=== PATIENT | female | born 1975 | race Caucasian/White ===

== ENCOUNTER 2016-07-15 11:32 | Emergency (ER) | payer BC ==
[2016-07-15] MEDS ORDERED: Sodium Chloride 0.9% 2.5 ML Syringe FLUSH PRN (11:54)
[2016-07-15] MEDS ORDERED: Sodium Chloride 0.9% 1,000 ML IV ONE (11:54)
[2016-07-15] MEDS ORDERED: Sodium Chloride 0.9% 10 ML Syringe FLUSH PRN (11:54)
--- NOTE | 2016-07-15 12:06 | EDM.PDOC ---
ED HPI HEADACHE COMPLAINT - General Chief Complaint: Headache Stated Complaint: HEADACHE Time Seen by Provider: 07/15/16 11:55 Source of Information: Reports: Patient History Limitations: Reports: No limitations - History of Present Illness INITIAL COMMENTS - FREE TEXT/NARRATIVE: HISTORY AND PHYSICAL: History of present illness: [Patient comes to the emergency room complaining of headache and generalized malaise. She began to feel lightheaded and not feeling well yesterday afternoon while she was at work. She left work early and went home and rested. She woke up this morning with a worsened headache and tried to get in for a doctor's appointment. Was recommended to come to the emergency room for evaluation due to her history of atrial fibrillation and hypertension. She denies chest pain, shortness of breath and difficulty breathing, but admits that she doesn't feel right. No abdominal pain. Has felt mildly nauseated today, and had 1 episode of loose stools today. She has not had much appetite, and has not been eating or drinking normally. Has not taken any medications for her symptoms. She has a history of headaches for which she usually takes Imitrex. She's not taken this medication today. Today's headache feels similar to other headaches she's had in the past but is not nearly as severe today.] Review of systems: As per history of present illness and below otherwise all systems reviewed and negative. Past medical history: As per history of present illness and as reviewed below otherwise noncontributory. Surgical history: As per history of present illness and as reviewed below otherwise noncontributory. Social history: No reported history of drug or alcohol abuse. Family history: As per history of present illness and as reviewed below otherwise noncontributory. Physical exam: HEENT: Atraumatic, normocephalic. mucous membranes slightly dry., throat clear. PERRLA., neck supple, nontender, no lymphadenopathy. Lungs: Clear to auscultation laterally. No wheezing crackles or rales. chest nontender. Heart: S1S2, regular rate and rhythm. Abdomen: Obese. Normoactive bowel sounds. Soft, nondistended, nontender. Negative for masses or hepatosplenomegaly. Negative for costovertebral tenderness. Genitourinary: Deferred. Rectal: Deferred. Extremities: Atraumatic, negative for cords or calf pain. No cyanosis or edema to feet or lower legs. Neurovascular unremarkable. Neuro: Awake, alert, oriented. Motor and sensory unremarkable throughout. Exam nonfocal. Diagnostics: [EKG, chest x-ray, CBC, CMP, troponin] Therapeutics: [Normal saline 1 L bolus] Impression: [Headache] Plan: [Discussed with patient that her headache may be due to being mildly dehydrated from a viral illness. Recommend she push fluids, get plenty of rest. Work note given excusing for this afternoon and tomorrow. Tylenol and ibuprofen as needed. All questions are answered and concerns are addressed.] Definitive disposition and diagnosis as appropriate pending reevaluation and review of above. - Related Data Allergies/ADRs: Allergies Allergy/AdvReac Type Severity Reaction Status Date / Time penicillin Allergy Anaphylactic Verified 07/15/16 11:45 Shock Home Meds: Home Meds Cyclobenzaprine [Flexeril] 10 mg PO TID PRN 02/11/15 [History] Diclofenac Sodium [Voltaren] 75 mg PO ASDIRECTED PRN 02/11/15 [History] LORazepam 1 mg PO DAILY PRN 02/11/15 [History] Levothyroxine [Synthroid] 50 mcg PO DAILY 02/11/15 [History] Losartan [Cozaar] 50 mg PO DAILY 02/11/15 [History] SUMAtriptan 100 mg PO ASDIRECTED PRN 02/11/15 [History] Citalopram [Celexa] 20 mg PO DAILY 06/02/16 [History] Metoprolol Tartrate 25 mg PO BID 06/02/16 [History] Rivaroxaban [Xarelto] 20 mg PO DAILY 06/02/16 [History] hydrALAZINE [Apresoline] 75 mg PO BEDTIME 07/15/16 [History] Past Medical History Cardiovascular History: Reports: High cholesterol, 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: Musculoskeletal History: Reports: Back pain, chronic Other Musculoskeletal History: mild degenerative disc disease Neurological History: Reports: Headaches, chronic Psychiatric History: Reports: Anxiety, Depression Dermatologic History: Reports: Other (see below) Other Dermatologic History: rash - Infectious Disease History Infectious Disease History: Reports: Chicken pox - Past Surgical History Other HEENT Surgeries/Procedures: sinus surgery GI Surgical History: Reports: Cholecystectomy Female Surgical History: Reports: section Other Female Surgeries/Procedures: laporoscopy Social & Family History - Family History Cardiac: Reports: Hypertension Endocrine/Metabolic: Reports: Other (see below) Other Endocrine/Metabolic Family History: diabetes-unknown type Oncologic: Reports: Other (see below) Other Oncologic Family History: sarcoma - Tobacco Use Smoking Status *Q: Never Smoker Second Hand Smoke Exposure: No - Caffeine Use Caffeine Use: Reports: Coffee - Recreational Drug Use Recreational Drug Use: No ED ROS GENERAL - Review of Systems Review Of Systems: ROS reveals no pertinent complaints other than HPI. - Physical Exam Exam: See Below Course - Vital Signs Last Recorded V/S: Last Vital Signs Temp 98.6 F 07/15/16 11:42 Pulse 76 07/15/16 14:23 Resp 18 07/15/16 11:42 BP 147/83 H 07/15/16 14:23 Pulse Ox 97 07/15/16 14:23 - Orders/Labs/Meds Orders: Active Orders 24 hr Category Date Time Status EKG Documentation Completion [RC] STAT Care 07/15/16 11:54 Active Saline Lock Insert [OM.PC] Stat Oth 07/15/16 11:54 Ordered Labs: Laboratory Tests 07/15/16 07/15/16 07/15/16 Range/Units 12:03 12:03 12:03 WBC 8.15 (4.0-11.0) K/uL RBC 4.81 (4.30-5.90) M/uL Hgb 14.1 (12.0-16.0) g/dL Hct 42.2 (36.0-46.0) % MCV 87.7 (80.0-98.0) fL MCH 29.3 (27.0-32.0) pg MCHC 33.4 (31.0-37.0) g/dL RDW Std Deviation 44.1 (28.0-62.0) fl RDW Coeff of Ava 14 (11.0-15.0) % Plt Count 241 (150-400) K/uL MPV 10.10 (7.40-12.00) fL Add Manual Diff YES Neutrophils % (Manual) 64 (48.0-80.0) % Band Neutrophils % 3 % Lymphocytes % (Manual) 28 (16.0-40.0) % Monocytes % (Manual) 3 (0.0-15.0) % Eosinophils % (Manual) 2 (0.0-7.0) % Nucleated RBC % 0.0 /100WBC Absolute Seg Neuts 5.2 Band Neutrophils # 0.2 Lymphocytes # (Manual) 2.3 Monocytes # (Manual) 0.2 Eosinophils # (Manual) 0.2 Nucleated RBCs # 0 K/uL Sodium 140 (136-146) mmol/L Potassium 3.5 (3.5-5.1) mmol/L Chloride 107 (98-110) mmol/L Carbon Dioxide 23 (21-31) mmol/L BUN 13 (6.0-23.0) mg/dL Creatinine 0.7 (0.6-1.5) mg/dL Est Cr Clr Drug Dosing 82.80 mL/min Estimated GFR (MDRD) > 60.0 ml/min Glucose 93 (60-110) mg/dL Calcium 9.0 (8.8-10.8) mg/dL Total Bilirubin 1.2 (0.1-1.5) mg/dL AST 19 (5-40) IU/L ALT 22 (8-54) IU/L Alkaline Phosphatase 66 (40-150) Troponin I < 0.10 (0.0-0.29) NG/ML Total Protein 7.2 (6.0-8.0) g/dL Albumin 4.0 (3.5-5.0) g/dL Globulin 3.2 (2.0-3.5) g/dL Albumin/Globulin Ratio 1.3 (1.3-2.8) Urine Color Urine Appearance Urine pH (5.0-8.0) Ur Specific [place] (1.001-1.035) Urine Protein (NEGATIVE) mg/dL Urine Glucose (UA) (NEGATIVE) mg/dL Urine Ketones (NEGATIVE) mg/dL Urine Occult Blood (NEGATIVE) Urine Nitrite (NEGATIVE) Urine Bilirubin (NEGATIVE) Urine Urobilinogen (<2.0) EU/dL Ur Leukocyte Esterase (NEGATIVE) Urine RBC (0-2/HPF) Urine WBC (0-5/HPF) Ur Squamous Epith Cells Urine Bacteria (NEGATIVE) Hyaline Casts (0-2/LPF) Urine Mucus (NONE-MOD) 07/15/16 Range/Units 13:18 WBC (4.0-11.0) K/uL RBC (4.30-5.90) M/uL Hgb (12.0-16.0) g/dL Hct (36.0-46.0) % MCV (80.0-98.0) fL MCH (27.0-32.0) pg MCHC (31.0-37.0) g/dL RDW Std Deviation (28.0-62.0) fl RDW Coeff of Ava (11.0-15.0) % Plt Count (150-400) K/uL MPV (7.40-12.00) fL Add Manual Diff Neutrophils % (Manual) (48.0-80.0) % Band Neutrophils % % Lymphocytes % (Manual) (16.0-40.0) % Monocytes % (Manual) (0.0-15.0) % Eosinophils % (Manual) (0.0-7.0) % Nucleated RBC % /100WBC Absolute Seg Neuts Band Neutrophils # Lymphocytes # (Manual) Monocytes # (Manual) Eosinophils # (Manual) Nucleated RBCs # K/uL Sodium (136-146) mmol/L Potassium (3.5-5.1) mmol/L Chloride (98-110) mmol/L Carbon Dioxide (21-31) mmol/L BUN (6.0-23.0) mg/dL Creatinine (0.6-1.5) mg/dL Est Cr Clr Drug Dosing mL/min Estimated GFR (MDRD) ml/min Glucose (60-110) mg/dL Calcium (8.8-10.8) mg/dL Total Bilirubin (0.1-1.5) mg/dL AST (5-40) IU/L ALT (8-54) IU/L Alkaline Phosphatase (40-150) Troponin I (0.0-0.29) NG/ML Total Protein (6.0-8.0) g/dL Albumin (3.5-5.0) g/dL Globulin (2.0-3.5) g/dL Albumin/Globulin Ratio (1.3-2.8) Urine Color YELLOW Urine Appearance SLT CLOUDY Urine pH 6.0 (5.0-8.0) Ur Specific [place] 1.025 (1.001-1.035) Urine Protein NEGATIVE (NEGATIVE) mg/dL Urine Glucose (UA) NEGATIVE (NEGATIVE) mg/dL Urine Ketones NEGATIVE (NEGATIVE) mg/dL Urine Occult Blood NEGATIVE (NEGATIVE) Urine Nitrite NEGATIVE (NEGATIVE) Urine Bilirubin NEGATIVE (NEGATIVE) Urine Urobilinogen 0.2 (<2.0) EU/dL Ur Leukocyte Esterase NEGATIVE (NEGATIVE) Urine RBC 0-2 (0-2/HPF) Urine WBC 0-2 (0-5/HPF) Ur Squamous Epith Cells MANY Urine Bacteria 1+ H (NEGATIVE) Hyaline Casts 0-2 (0-2/LPF) Urine Mucus HEAVY (NONE-MOD) Meds: Medications Discontinued Medications Generic Name Dose Route Start Last Admin Trade Name Freq PRN Reason Stop Dose Admin Sodium Chloride 1,000 mls @ 999 mls/hr 07/15/16 11:54 07/15/16 12:08 Normal Saline IV 07/15/16 12:54 999 mls/hr STAT ONE Administration Ondansetron HCl 4 mg 07/15/16 12:46 07/15/16 13:23 Zofran IVPUSH 07/15/16 12:47 4 mg ONETIME ONE Administration Sodium Chloride 10 ml 07/15/16 11:54 07/15/16 12:09 Saline Flush FLUSH 10 ml ASDIRECTED PRN Administration Keep Vein Open Sodium Chloride 2.5 ml 07/15/16 11:54 07/15/16 12:09 Saline Flush FLUSH 2.5 ml ASDIRECTED PRN Administration Keep Vein Open Departure - Departure Time of Disposition: 14:15 Disposition: Home, Self-Care 01 Condition: good Clinical Impression: Headache Qualifiers: Headache type: other headache syndrome Qualified Code(s): G44.89 - Other headache syndrome Instructions: Cluster Headache Referrals: PCP,None [Primary Care Provider] - Forms: ED Department Discharge Additional Instructions: The following information is given to patients seen in the emergency department who are being discharged to home. This information is to outline your options for follow-up care. We provide all patients seen in our emergency department with a follow-up referral. The need for follow-up, as well as the timing and circumstances, are variable depending upon the specifics of your emergency department visit. If you don't have a primary care physician on staff, we will provide you with a referral. We always advise you to contact your personal physician following an emergency department visit to inform them of the circumstance of the visit and for follow-up with them and/or the need for any referrals to a consulting specialist. The emergency department will also refer you to a specialist when appropriate. This referral assures that you have the opportunity for follow-up care with a specialist. All of these measure are taken in an effort to provide you with optimal care, which includes your follow-up. Under all circumstances we always encourage you to contact your private physician who remains a resource for coordinating your care. When calling for follow-up care, please make the office aware that this follow-up is from your recent emergency room visit. If for any reason you are refused follow-up, please contact the [facility] emergency department at and asked to speak to the emergency department charge nurse. [facility] [address] [place] [address] Followup with your local primary care provider at the clavicles above the 48-72 hours. Push fluids, get plenty of rest. May return to work on July 17, 2016. Return to ER as needed as discussed. - My Orders Last 24 Hours: My Active Orders 07/15/16 11:54 EKG Documentation Completion [RC] STAT Saline Lock Insert [OM.PC] Stat - Assessment/Plan Last 24 Hours: My Active Orders 07/15/16 11:54 EKG Documentation Completion [RC] STAT Saline Lock Insert [OM.PC] Stat
[2016-07-15 12:36] LABS: CHLORIDE,CL 107 mmol/L (98-110); SODIUM,NA 140 mmol/L (136-146)
[2016-07-15] MEDS ORDERED: Ondansetron 4 MG/2 ML SDV IVPUSH ONE (12:46)
[2016-07-15 14:23] VITALS: BP 147/83
== END 2016-07-15 14:26 | disposition home or self-care (01) ==
LOC: MW.ED 11:32
DX: G44.89 Other headache syndrome (principal); I10 Essential (primary) hypertension; E78.00 Pure hypercholesterolemia, unspecified; F41.8 Other specified anxiety disorders; Z90.49 Acquired absence of other specified parts of digestive tract; Z98.890 Other specified postprocedural states; Z88.0 Allergy status to penicillin; Z79.899 Other long term (current) drug therapy
CPT/HCPCS: 36415; 80053; 81001; 84484; 85025; 93005; 96361; 96374; 99283; J2405; J7040; 99284

== ENCOUNTER 2016-10-26 05:55 | Emergency (ER) | payer BC ==
--- NOTE | 2016-10-26 07:12 | EDM.PDOC ---
ED HPI GENERAL MEDICAL PROBLEM - General Chief Complaint: General Stated Complaint: ILL,CHEST THROAT CONGESTION Time Seen by Provider: 10/26/16 06:10 Source of Information: Reports: Patient History Limitations: Reports: No Limitations - History of Present Illness INITIAL COMMENTS - FREE TEXT/NARRATIVE: HISTORY AND PHYSICAL: History of present illness: [[id number] female with no symmetric a past medical history now complaining of dry cough and sinus congestion. 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 No chest pain or shortness of breath. She feels like her sinus congestions making it difficult to breathe. No headache Or stiff neck otherwise asymptomatic Review of systems: As per history of present illness and below otherwise all systems reviewed and negative. Past medical history: As per history of present illness and as reviewed below otherwise noncontributory. Surgical history: As per history of present illness and as reviewed below otherwise noncontributory. Social history: No reported history of drug or alcohol abuse. Family history: As per history of present illness and as reviewed below otherwise noncontributory. Physical exam: Mild sinus congestion. Clear lungs regular rate and rhythm no tachypnea or tachycardia normal respiratory rate and pulse ox HEENT: Atraumatic, normocephalic, pupils reactive, negative for conjunctival pallor or scleral icterus, mucous membranes moist, throat clear, neck supple, nontender, trachea midline. Lungs: Clear to auscultation, breath sounds equal bilaterally, chest nontender. Heart: S1S2, regular, negative for clicks, rubs, or JVD. Abdomen: Soft, nondistended, nontender. Negative for masses or hepatosplenomegaly. Negative for costovertebral tenderness. Pelvis: Stable nontender. Genitourinary: Deferred. Rectal: Deferred. Extremities: Atraumatic, negative for cords or calf pain. Neurovascular unremarkable. Neuro: Awake, alert, oriented. Cranial nerves grossly unremarkable. Cerebellum unremarkable. Motor and sensory unremarkable throughout. Exam nonfocal. Diagnostics: [Chest x-ray interpreted by me -no acute disease] Therapeutics: [] Impression: [Sinus congestion Cough] Plan: [Patient with mild dry cough and sinus congestion signs and symptoms consistent with suspected viral syndrome versus less likely possibility of the mucosal irritation from cleaning agent fumes. Patient with normal respiratory rate and pulse ox no shortness of air.] Patient is aware to take [id number] meds as needed for congestion and follow-up with her primary care doctor in one to 2 days. Return immediately for new severe or worsening symptoms Definitive disposition and diagnosis as appropriate pending reevaluation and review of above. - Related Data Allergies Allergy/AdvReac Type Severity Reaction Status Date / Time penicillin Allergy Anaphylactic Verified 10/26/16 06:04 Shock Home Meds: Home Meds Cyclobenzaprine [Flexeril] 10 mg PO TID PRN 02/11/15 [History] Diclofenac Sodium [Voltaren] 75 mg PO ASDIRECTED PRN 02/11/15 [History] LORazepam 1 mg PO DAILY PRN 02/11/15 [History] Levothyroxine [Synthroid] 50 mcg PO DAILY 02/11/15 [History] Losartan [Cozaar] 50 mg PO DAILY 02/11/15 [History] SUMAtriptan 100 mg PO ASDIRECTED PRN 02/11/15 [History] Citalopram [Celexa] 20 mg PO DAILY 06/02/16 [History] Metoprolol Tartrate 25 mg PO BID 06/02/16 [History] Rivaroxaban [Xarelto] 20 mg PO DAILY 06/02/16 [History] hydrALAZINE [Apresoline] 75 mg PO BEDTIME 07/15/16 [History] Past Medical History Cardiovascular History: Reports: Afib, Hypertension 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: Musculoskeletal History: Reports: Back Pain, Chronic Other Musculoskeletal History: mild degenerative disc disease Neurological History: Reports: Headaches, Chronic Psychiatric History: Reports: Anxiety, Depression Dermatologic History: Reports: Other (See Below) Other Dermatologic History: rash - Infectious Disease History Infectious Disease History: Reports: Chicken Pox - Past Surgical History Other HEENT Surgeries/Procedures: sinus surgery GI Surgical History: Reports: Cholecystectomy Female Surgical History: Reports: Section Social & Family History - Family History Cardiac: Reports: Hypertension Endocrine/Metabolic: Reports: Other (See Below) Other Endocrine/Metabolic Family History: diabetes-unknown type Oncologic: Reports: Other (See Below) Other Oncologic Family History: sarcoma - Tobacco Use Smoking Status *Q: Never Smoker Second Hand Smoke Exposure: No - Caffeine Use Caffeine Use: Reports: Coffee - Recreational Drug Use Recreational Drug Use: No ED ROS GENERAL - Review of Systems Review Of Systems: See Below (history of present illness) ED EXAM, GENERAL - Physical Exam Exam: See Below (History of present illness) Course - Vital Signs Last Recorded V/S: Last Vital Signs Temp 36.5 C 10/26/16 06:04 Pulse 92 10/26/16 06:04 Resp 20 10/26/16 06:04 BP 181/114 H 10/26/16 06:04 Pulse Ox 96 10/26/16 06:04 - Orders/Labs/Meds Orders: Active Orders 24 hr Category Date Time Status Chest 1V Frontal [CR] Stat Exams 10/26/16 06:43 Taken Departure - Departure Time of Disposition: 07:13 Disposition: Home, Self-Care 01 Condition: Good Clinical Impression: Sinus congestion, Cough - Discharge Information Referrals: Kiki Padilla MD [Primary Care Provider] - Forms: ED Department Discharge Additional Instructions: It appears that you have a likely viral syndrome causing of sinus congestion and dry cough. Use [id number] meds as needed for decongestant effect. Ativan abundance of caution is recommended to avoid exposure to concentrate cleaning product fumes so he use any be sure to be in well ventilated area. Follow-up with your DrCallie in one to 2 days and return immediately for new severe or worsening symptoms - My Orders Last 24 Hours: My Active Orders 10/26/16 06:43 Chest 1V Frontal [CR] Stat - Assessment/Plan Last 24 Hours: My Active Orders 10/26/16 06:43 Chest 1V Frontal [CR] Stat
[2016-10-26 07:25] VITALS: BP 142/94
--- NOTE | 2016-10-28 11:39 | CR ---
EXAM DATE: 10/26/16 PATIENT'S AGE: 41 Patient: ROWENA DARBY Facility: [place], [place] Site . Site : [id number] Study: XRay Chest [id number]/17/2017 6:56:40 AM Ordering Physician: Vaibhav Sung Final Report: INDICATION: CHEST PAIN, SOB. PT STATES WOKE UP THIS MORNING AND FELT LIKE SHE COULDNT BREATH TECHNIQUE: Chest radiograph 1 view COMPARISON: 02/11/15 FINDINGS: Cardiovascular and mediastinum: The cardiac silhouette is normal in appearance and size. Mediastinum is within normal limits. Lungs and pleural space: Both lungs are unremarkable in appearance. No sign of pleural effusion. No pneumothorax is seen. Bones and soft tissues: No significant findings. IMPRESSION: 1. No acute cardiopulmonary disease seen. Dictated by: Mack Gibbs MD @ 10/26/2016 07:01:58 (Electronic Signature) Report Signed by Proxy. DARLENE
== END 2016-10-26 07:22 | disposition home or self-care (01) ==
LOC: MW.ED 05:55
DX: R09.81 Nasal congestion (principal); R05 Cough; I10 Essential (primary) hypertension; I48.91 Unspecified atrial fibrillation; F41.9 Anxiety disorder, unspecified; F32.9 Major depressive disorder, single episode, unspecified; Z88.0 Allergy status to penicillin; Z79.899 Other long term (current) drug therapy; Z90.49 Acquired absence of other specified parts of digestive tract
CPT/HCPCS: 71010; 71010-26; 99282; 99284

== ENCOUNTER 2016-11-27 15:19 | Emergency (ER) | payer BC ==
[2016-11-27] MEDS ORDERED: Sodium Chloride 0.9% 2.5 ML Syringe FLUSH PRN (15:53)
[2016-11-27] MEDS ORDERED: Ondansetron 4 MG/2 ML SDV IVPUSH ONE (15:53)
[2016-11-27] MEDS ORDERED: Sodium Chloride 0.9% 1,000 ML IV ONE (15:53)
[2016-11-27] MEDS ORDERED: Sodium Chloride 0.9% 10 ML Syringe FLUSH PRN (15:53)
--- NOTE | 2016-11-27 15:57 | EDM.PDOC ---
ED HPI GENERAL MEDICAL PROBLEM - General Chief Complaint: Gastrointestinal Problem Stated Complaint: CONGESTION Time Seen by Provider: 11/27/16 15:54 Source of Information: Reports: Patient History Limitations: Reports: No Limitations - History of Present Illness INITIAL COMMENTS - FREE TEXT/NARRATIVE: HISTORY AND PHYSICAL: []41-year-old female presenting with abdominal pain cramping vomiting last night History of Present Illness: []Patient states she had solid at the [employer] yesterday at about 2:30 PM then she became sick about 11:00 last night Patient is on blood thinners due to A. fib almost 2 years ago Review of Systems: As per history of present illness and below otherwise all systems reviewed and negative. Past medical history: As per history of present illness and as reviewed below otherwise noncontributory. Surgical history: As per history of present illness and as reviewed below otherwise noncontributory. Social history: No reported history of drug or alcohol abuse. Family history: As per history of present illness and as reviewed below otherwise noncontributory. Physical exam: Alert and oriented female answers questions appropriately HEENT: Atraumatic, normocehpalic, pupils reactive, negative for conjunctival pallor or scleral icterus, mucous membranes dry, throat clear, neck supple, nontender, trachea midline. Lungs: Clear to auscultation, breath sounds equal bilaterally, chest non tender. Heart: S1S2, regular, negative for clicks, rubs, or JVD. Abdomen: Soft, nondistended, nontender. Negative for masses or hepatossplenmegaly. Negative for costovertebral tenderness. Pelvis: Stable nontender. Genitourinary: Deferred. Rectal: Deferred Extremities: Atraumatic, negative for cords or calf pain. Neurovascular unremarkable. Neuro: Awake, alert, oriented. Cranial nerves II through XII unremarkable. Cerebellum unremarkable. Motor and sensory unremarkable throughout. Exam nonfocal. Diagnostics: [CBC CMP] Therapeutics: [Zofran 1 L normal saline] Impression: [Vomiting Hypokalemia] Plan: [Home Push fluids Zofran ODT Potassium daily ] Definitive disposition and diagnosis as appropriate pending reevaluation and review of above. Onset: Sudden Duration: Hour(s): Location: Reports: Head, Abdomen abdominal pain Pain Score (Numeric/FACES): 8 - Related Data Allergies Allergy/AdvReac Type Severity Reaction Status Date / Time penicillin Allergy Anaphylactic Verified 10/26/16 06:04 Shock Home Meds: Home Meds Cyclobenzaprine [Flexeril] 10 mg PO TID PRN 02/11/15 [History] Diclofenac Sodium [Voltaren] 75 mg PO ASDIRECTED PRN 02/11/15 [History] LORazepam 1 mg PO DAILY PRN 02/11/15 [History] Levothyroxine [Synthroid] 50 mcg PO DAILY 02/11/15 [History] Losartan [Cozaar] 50 mg PO DAILY 02/11/15 [History] SUMAtriptan 100 mg PO ASDIRECTED PRN 02/11/15 [History] Citalopram [Celexa] 20 mg PO DAILY 06/02/16 [History] Metoprolol Tartrate 25 mg PO BID 06/02/16 [History] Rivaroxaban [Xarelto] 20 mg PO DAILY 06/02/16 [History] hydrALAZINE [Apresoline] 75 mg PO BEDTIME 07/15/16 [History] Ondansetron [Zofran ODT] 4 mg PO Q8H #6 tab.dis 11/27/16 [Rx] Potassium Bicarbonate/Cit Ac [Potassium 25 Meq Tablet Eff] 25 meq PO DAILY #10 tablet.eff 11/27/16 [Rx] Past Medical History Cardiovascular History: Reports: Afib, Hypertension 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: Musculoskeletal History: Reports: Back Pain, Chronic Other Musculoskeletal History: mild degenerative disc disease Neurological History: Reports: Headaches, Chronic Psychiatric History: Reports: Anxiety, Depression Dermatologic History: Reports: Other (See Below) Other Dermatologic History: rash - Infectious Disease History Infectious Disease History: Reports: Chicken Pox - Past Surgical History Other HEENT Surgeries/Procedures: sinus surgery GI Surgical History: Reports: Cholecystectomy Female Surgical History: Reports: Section Social & Family History - Family History Cardiac: Reports: Hypertension Endocrine/Metabolic: Reports: Other (See Below) Other Endocrine/Metabolic Family History: diabetes-unknown type Oncologic: Reports: Other (See Below) Other Oncologic Family History: sarcoma - Tobacco Use Smoking Status *Q: Never Smoker Second Hand Smoke Exposure: No - Caffeine Use Caffeine Use: Reports: Coffee - Recreational Drug Use Recreational Drug Use: No ED ROS GENERAL - Review of Systems Review Of Systems: ROS reveals no pertinent complaints other than HPI. ED EXAM, GI/ABD - Physical Exam Exam: See Below (See dictation) Course - Vital Signs Last Recorded V/S: Last Vital Signs Temp 36.4 C 11/27/16 15:58 Pulse 87 11/27/16 15:58 Resp 18 11/27/16 15:58 BP 162/87 H 11/27/16 15:58 Pulse Ox 96 11/27/16 15:58 - Orders/Labs/Meds Orders: Active Orders 24 hr Category Date Time Status Potassium Bicarbonate [Klor-Con EF] Med 11/27/16 17:15 Active 25 meq PO DAILY Sodium Chloride 0.9% [Saline Flush] Med 11/27/16 15:53 Active 10 ml FLUSH ASDIRECTED PRN Sodium Chloride 0.9% [Saline Flush] Med 11/27/16 15:53 Active 2.5 ml FLUSH ASDIRECTED PRN Saline Lock Insert [OM.PC] Stat Oth 11/27/16 15:53 Ordered Medication Orders Potassium Bicarbonate (Klor-Con Ef) 25 meq PO DAILY BRANDON Sodium Chloride (Saline Flush) 10 ml FLUSH ASDIRECTED PRN PRN Reason: Keep Vein Open Sodium Chloride (Saline Flush) 2.5 ml FLUSH ASDIRECTED PRN PRN Reason: Keep Vein Open Labs: Laboratory Tests 11/27/16 11/27/16 Range/Units 16:39 16:39 WBC 7.93 (4.0-11.0) K/uL RBC 4.77 (4.30-5.90) M/uL Hgb 14.1 (12.0-16.0) g/dL Hct 41.6 (36.0-46.0) % MCV 87.2 (80.0-98.0) fL MCH 29.6 (27.0-32.0) pg MCHC 33.9 (31.0-37.0) g/dL RDW Std Deviation 41.1 (28.0-62.0) fl RDW Coeff of Ava 13 (11.0-15.0) % Plt Count 198 (150-400) K/uL MPV 10.60 (7.40-12.00) fL Neut % (Auto) 81.9 H (48.0-80.0) % Lymph % (Auto) 12.0 L (16.0-40.0) % [place] % (Auto) 4.9 (0.0-15.0) % Eos % (Auto) 1.1 (0.0-7.0) % Baso % (Auto) 0.1 (0.0-1.5) % Neut # (Auto) 6.5 H (1.4-5.7) K/uL Lymph # (Auto) 1.0 (0.6-2.4) K/uL [place] # (Auto) 0.4 (0.0-0.8) K/uL Eos # (Auto) 0.1 (0.0-0.7) K/uL Baso # (Auto) 0.0 (0.0-0.1) K/uL Nucleated RBC % 0.0 /100WBC Nucleated RBCs # 0 K/uL Sodium 141 (136-146) mmol/L Potassium 3.2 L (3.5-5.1) mmol/L Chloride 105 (98-110) mmol/L Carbon Dioxide 27 (21-31) mmol/L BUN 9 (6.0-23.0) mg/dL Creatinine 0.7 (0.6-1.5) mg/dL Est Cr Clr Drug Dosing 86.60 mL/min Estimated GFR (MDRD) > 60.0 ml/min Glucose 85 (60-110) mg/dL Calcium 9.0 (8.8-10.8) mg/dL Total Bilirubin 2.2 H (0.1-1.5) mg/dL AST 20 (5-40) IU/L ALT 23 (8-54) IU/L Alkaline Phosphatase 71 (40-150) Total Protein 6.9 (6.0-8.0) g/dL Albumin 3.8 (3.5-5.0) g/dL Globulin 3.1 (2.0-3.5) g/dL Albumin/Globulin Ratio 1.2 L (1.3-2.8) Meds: Medications Generic Name Dose Route Start Last Admin Trade Name Freq PRN Reason Stop Dose Admin Potassium Bicarbonate 25 meq 11/27/16 17:15 Klor-Con Ef PO DAILY BRANDON Sodium Chloride 10 ml 11/27/16 15:53 Saline Flush FLUSH ASDIRECTED PRN Keep Vein Open Sodium Chloride 2.5 ml 11/27/16 15:53 Saline Flush FLUSH ASDIRECTED PRN Keep Vein Open Discontinued Medications Generic Name Dose Route Start Last Admin Trade Name Merlene PRN Reason Stop Dose Admin Sodium Chloride 1,000 mls @ 999 mls/hr 11/27/16 15:53 11/27/16 16:16 Normal Saline IV 11/27/16 16:53 999 mls/hr STAT ONE Administration Morphine Sulfate 2 mg 11/27/16 17:14 Morphine IV 11/27/16 17:15 ONETIME ONE Ondansetron HCl 4 mg 11/27/16 15:53 11/27/16 16:16 Zofran IVPUSH 11/27/16 15:54 4 mg ONETIME ONE Administration Departure - Departure Time of Disposition: 17:26 Disposition: Home, Self-Care 01 Condition: Good Clinical Impression: Vomiting, Hypokalemia - Discharge Information Prescriptions: Ondansetron [Zofran ODT] 4 mg PO Q8H #6 tab.dis Potassium Bicarbonate/Cit Ac [Potassium 25 Meq Tablet Eff] 25 meq PO DAILY #10 tablet.eff Forms: ED Department Discharge Additional Instructions: The following information is given to patients seen in the emergency department who are being discharged to home. This information is to outline your options for follow-up care. We provide all patients seen in our emergency department with a follow-up referral. The need for follow-up, as well as the timing and circumstances, are variable depending upon the specifics of your emergency department visit. If you don't have a primary care physician on staff, we will provide you with a referral. We always advise you to contact your personal physician following an emergency department visit to inform them of the circumstance of the visit and for follow-up with them and/or the need for any referrals to a consulting specialist. The emergency department will also refer you to a specialist when appropriate. This referral assures that you have the opportunity for followup care with a specialist. All of these measure are taken in an effort to provide you with optimal care, which includes your followup. Under all circumstances we always encourage you to contact your private physician who remains a resource for coordinating your care. When calling for followup care, please make the office aware that this follow-up is from your recent emergency room visit. If for any reason you are refused follow-up, please contact the [facility] emergency department at and asked to speak to the emergency department charge nurse. Prescriptions have been electronically sent to your pharmacy Potassium supplement daily 10 days Zofran ODT 13 times daily as needed for nausea number 6 no refill - My Orders Last 24 Hours: My Active Orders 11/27/16 15:53 Sodium Chloride 0.9% [Saline Flush] 10 ml FLUSH ASDIRECTED PRN Sodium Chloride 0.9% [Saline Flush] 2.5 ml FLUSH ASDIRECTED PRN Saline Lock Insert [OM.PC] Stat 11/27/16 17:15 Potassium Bicarbonate [Klor-Con EF] 25 meq PO DAILY - Assessment/Plan Last 24 Hours: My Active Orders 11/27/16 15:53 Sodium Chloride 0.9% [Saline Flush] 10 ml FLUSH ASDIRECTED PRN Sodium Chloride 0.9% [Saline Flush] 2.5 ml FLUSH ASDIRECTED PRN Saline Lock Insert [OM.PC] Stat 11/27/16 17:15 Potassium Bicarbonate [Klor-Con EF] 25 meq PO DAILY
[2016-11-27 17:11] LABS: CHLORIDE,CL 105 mmol/L (98-110); SODIUM,NA 141 mmol/L (136-146)
[2016-11-27] MEDS ORDERED: Morphine 10 MG/ML Syringe IV ONE (17:14)
[2016-11-27] MEDS ORDERED: Potassium Bicarbonate 25 MEQ Tab.EFF PO SCH (17:15)
[2016-11-27] MEDS ORDERED: Potassium Chloride 10 MEQ Tab.ER PO ONE (17:35)
[2016-11-27 18:39] VITALS: BP 130/74
== END 2016-11-27 18:16 | disposition home or self-care (01) ==
LOC: MW.ED 15:19
DX: E87.6 Hypokalemia (principal); R11.10 Vomiting, unspecified; I10 Essential (primary) hypertension; I48.91 Unspecified atrial fibrillation; F41.9 Anxiety disorder, unspecified; F32.9 Major depressive disorder, single episode, unspecified; Z90.49 Acquired absence of other specified parts of digestive tract; Z79.899 Other long term (current) drug therapy; Z88.0 Allergy status to penicillin
CPT/HCPCS: 36415; 80053; 85025; 96361; 96374; 96375; 99284; A9270; J2270; J2405; J7040

== ENCOUNTER 2017-05-14 00:10 | Emergency (ER) | payer BC ==
[2017-05-14] MEDS ORDERED: Sodium Chloride 0.9% 1,000 ML IV ONE (00:54)
[2017-05-14] MEDS ORDERED: Ketorolac 30 MG/ML SDV IVPUSH ONE (00:54)
[2017-05-14] MEDS ORDERED: Ondansetron 4 MG/2 ML SDV IVPUSH ONE (00:54)
[2017-05-14 00:55] VITALS: BP 179/108
--- NOTE | 2017-05-14 00:56 | EDM.PDOC ---
ED HPI GENERAL MEDICAL PROBLEM - General Chief Complaint: Abdominal Pain Stated Complaint: PAIN ON LEFT SIDE AND BACK AREA Time Seen by Provider: 05/14/17 00:55 Source of Information: Reports: Patient - History of Present Illness INITIAL COMMENTS - FREE TEXT/NARRATIVE: HISTORY AND PHYSICAL: History of present illness: [ Patient presents with acute onset left flank and abdominal pain that awoke her from sleep rated 8 out of 10 in left flank radiating to the abdomen/groin No fever some nausea and one episode of vomiting no chills sweats ] Review of systems: As per history of present illness and below otherwise all systems reviewed and negative. Past medical history: As per history of present illness and as reviewed below otherwise noncontributory. Surgical history: As per history of present illness and as reviewed below otherwise noncontributory. Social history: No reported history of drug or alcohol abuse. Family history: As per history of present illness and as reviewed below otherwise noncontributory. Physical exam: HEENT: Atraumatic, normocephalic, pupils reactive, negative for conjunctival pallor or scleral icterus, mucous membranes moist, throat clear, neck supple, nontender, trachea midline. Lungs: Clear to auscultation, breath sounds equal bilaterally, chest nontender. Heart: S1S2, regular, negative for clicks, rubs, or JVD. Abdomen: Soft, nondistended, nontender. Negative for masses or hepatosplenomegaly. Negative for costovertebral tenderness. Pelvis: Stable nontender. Genitourinary: Deferred. Rectal: Deferred. Extremities: Atraumatic, negative for cords or calf pain. Neurovascular unremarkable. Neuro: Awake, alert, oriented. Cranial nerves II through XII unremarkable. Cerebellum unremarkable. Motor and sensory unremarkable throughout. Exam nonfocal. Diagnostics: [Lab as below ]CT abdomen pelvis with and without contrast Therapeutics: [1 L normal saline Zofran 8 mg IV Toradol 30 mg IV Flomax 0.4 mg Solu-Medrol 125 mg IV [place] Keflex Filter strain urine Follow-up with primary care Return stone the for pathology with primary care or urology ] Impression: Left flank pain [5 mm stone proximal left ureter minimal dilation of renal pelvis Patient is sleeping at current after the Toradol in no distress whatsoever Definitive disposition and diagnosis as appropriate pending reevaluation and review of above. abdominal pain Pain Score (Numeric/FACES): 10 - Related Data Allergies Allergy/AdvReac Type Severity Reaction Status Date / Time penicillin Allergy Anaphylactic Verified 05/14/17 00:52 Shock Home Meds: Home Meds Cyclobenzaprine [Flexeril] 10 mg PO TID PRN 02/11/15 [History] Diclofenac Sodium [Voltaren] 75 mg PO ASDIRECTED PRN 02/11/15 [History] LORazepam 1 mg PO DAILY PRN 02/11/15 [History] Levothyroxine [Synthroid] 50 mcg PO DAILY 02/11/15 [History] Losartan [Cozaar] 50 mg PO DAILY 02/11/15 [History] SUMAtriptan 100 mg PO ASDIRECTED PRN 02/11/15 [History] Citalopram [Celexa] 20 mg PO DAILY 06/02/16 [History] Metoprolol Tartrate 25 mg PO BID 06/02/16 [History] Rivaroxaban [Xarelto] 20 mg PO DAILY 06/02/16 [History] hydrALAZINE [Apresoline] 75 mg PO BEDTIME 07/15/16 [History] Ondansetron [Zofran ODT] 4 mg PO Q8H #6 tab.dis 11/27/16 [Rx] Potassium Bicarbonate/Cit Ac [Potassium 25 Meq Tablet Eff] 25 meq PO DAILY #10 tablet.eff 11/27/16 [Rx] Past Medical History Cardiovascular History: Reports: Afib, Hypertension 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: Musculoskeletal History: Reports: Back Pain, Chronic Other Musculoskeletal History: mild degenerative disc disease Neurological History: Reports: Headaches, Chronic Psychiatric History: Reports: Anxiety, Depression Dermatologic History: Reports: Other (See Below) Other Dermatologic History: rash - Infectious Disease History Infectious Disease History: Reports: Chicken Pox - Past Surgical History Other HEENT Surgeries/Procedures: sinus surgery GI Surgical History: Reports: Cholecystectomy Female Surgical History: Reports: Section Social & Family History - Family History Cardiac: Reports: Hypertension Endocrine/Metabolic: Reports: Other (See Below) Other Endocrine/Metabolic Family History: diabetes-unknown type Oncologic: Reports: Other (See Below) Other Oncologic Family History: sarcoma - Tobacco Use Smoking Status *Q: Never Smoker Second Hand Smoke Exposure: No - Caffeine Use Caffeine Use: Reports: Coffee - Recreational Drug Use Recreational Drug Use: No ED ROS GENERAL - Review of Systems Review Of Systems: ROS reveals no pertinent complaints other than HPI. ED EXAM, GENERAL - Physical Exam Exam: See Below Course - Vital Signs Last Recorded V/S: Last Vital Signs Temp 97.3 F 05/14/17 00:52 Pulse 88 05/14/17 00:52 Resp 18 05/14/17 00:52 BP 179/108 H 05/14/17 00:52 Pulse Ox 98 05/14/17 00:52 - Orders/Labs/Meds Orders: Active Orders 24 hr Category Date Time Status Abdomen Pelvis w wo Cont [CT] Stat Exams 05/14/17 01:01 Taken CULTURE URINE [RM] Stat Lab 05/14/17 01:40 Received Labs: Laboratory Tests 05/14/17 05/14/17 05/14/17 Range/Units 01:20 01:20 01:40 WBC 7.38 (4.0-11.0) K/uL RBC 4.56 (4.30-5.90) M/uL Hgb 13.4 (12.0-16.0) g/dL Hct 39.7 (36.0-46.0) % MCV 87.1 (80.0-98.0) fL MCH 29.4 (27.0-32.0) pg MCHC 33.8 (31.0-37.0) g/dL RDW Std Deviation 38.5 (28.0-62.0) fl RDW Coeff of Ava 12 (11.0-15.0) % Plt Count 237 (150-400) K/uL MPV 10.40 (7.40-12.00) fL Neut % (Auto) 65.1 (48.0-80.0) % Lymph % (Auto) 22.5 (16.0-40.0) % [place] % (Auto) 8.9 (0.0-15.0) % Eos % (Auto) 3.0 (0.0-7.0) % Baso % (Auto) 0.5 (0.0-1.5) % Neut # (Auto) 4.8 (1.4-5.7) K/uL Lymph # (Auto) 1.7 (0.6-2.4) K/uL [place] # (Auto) 0.7 (0.0-0.8) K/uL Eos # (Auto) 0.2 (0.0-0.7) K/uL Baso # (Auto) 0.0 (0.0-0.1) K/uL Sodium 142 (136-146) mmol/L Potassium 3.3 L (3.5-5.1) mmol/L Chloride 108 (98-110) mmol/L Carbon Dioxide 25 (21-31) mmol/L BUN 12 (6.0-23.0) mg/dL Creatinine 0.7 (0.6-1.5) mg/dL Est Cr Clr Drug Dosing 85.72 mL/min Estimated GFR (MDRD) > 60.0 ml/min Glucose 121 H (60-110) mg/dL Calcium 9.3 (8.8-10.8) mg/dL Total Bilirubin 1.1 (0.1-1.5) mg/dL AST 20 (5-40) IU/L ALT 26 (8-54) IU/L Alkaline Phosphatase 67 (40-150) Total Protein 7.1 (6.0-8.0) g/dL Albumin 4.0 (3.5-5.0) g/dL Globulin 3.1 (2.0-3.5) g/dL Albumin/Globulin Ratio 1.3 (1.3-2.8) Amylase 29 (10-90) U/L Lipase 17 (7-80) U/L Urine Color Urine Appearance Urine pH (5.0-8.0) Ur Specific [place] (1.001-1.035) Urine Protein (NEGATIVE) mg/dL Urine Glucose (UA) (NEGATIVE) mg/dL Urine Ketones (NEGATIVE) mg/dL Urine Occult Blood (NEGATIVE) Urine Nitrite (NEGATIVE) Urine Bilirubin (NEGATIVE) Urine Urobilinogen (<2.0) EU/dL Ur Leukocyte Esterase (NEGATIVE) Urine RBC (0-2/HPF) Urine WBC (0-5/HPF) Ur Epithelial Cells (NONE-FEW) Urine Bacteria (NEGATIVE) Urine HCG, Qual NEGATIVE (NEGATIVE) 05/14/17 Range/Units 01:40 WBC (4.0-11.0) K/uL RBC (4.30-5.90) M/uL Hgb (12.0-16.0) g/dL Hct (36.0-46.0) % MCV (80.0-98.0) fL MCH (27.0-32.0) pg MCHC (31.0-37.0) g/dL RDW Std Deviation (28.0-62.0) fl RDW Coeff of Ava (11.0-15.0) % Plt Count (150-400) K/uL MPV (7.40-12.00) fL Neut % (Auto) (48.0-80.0) % Lymph % (Auto) (16.0-40.0) % [place] % (Auto) (0.0-15.0) % Eos % (Auto) (0.0-7.0) % Baso % (Auto) (0.0-1.5) % Neut # (Auto) (1.4-5.7) K/uL Lymph # (Auto) (0.6-2.4) K/uL [place] # (Auto) (0.0-0.8) K/uL Eos # (Auto) (0.0-0.7) K/uL Baso # (Auto) (0.0-0.1) K/uL Sodium (136-146) mmol/L Potassium (3.5-5.1) mmol/L Chloride (98-110) mmol/L Carbon Dioxide (21-31) mmol/L BUN (6.0-23.0) mg/dL Creatinine (0.6-1.5) mg/dL Est Cr Clr Drug Dosing mL/min Estimated GFR (MDRD) ml/min Glucose (60-110) mg/dL Calcium (8.8-10.8) mg/dL Total Bilirubin (0.1-1.5) mg/dL AST (5-40) IU/L ALT (8-54) IU/L Alkaline Phosphatase (40-150) Total Protein (6.0-8.0) g/dL Albumin (3.5-5.0) g/dL Globulin (2.0-3.5) g/dL Albumin/Globulin Ratio (1.3-2.8) Amylase (10-90) U/L Lipase (7-80) U/L Urine Color YELLOW Urine Appearance CLEAR Urine pH 6.0 (5.0-8.0) Ur Specific [place] 1.025 (1.001-1.035) Urine Protein NEGATIVE (NEGATIVE) mg/dL Urine Glucose (UA) NEGATIVE (NEGATIVE) mg/dL Urine Ketones NEGATIVE (NEGATIVE) mg/dL Urine Occult Blood TRACE-INTACT (NEGATIVE) Urine Nitrite NEGATIVE (NEGATIVE) Urine Bilirubin NEGATIVE (NEGATIVE) Urine Urobilinogen 0.2 (<2.0) EU/dL Ur Leukocyte Esterase NEGATIVE (NEGATIVE) Urine RBC 0-3 (0-2/HPF) Urine WBC 0-1 (0-5/HPF) Ur Epithelial Cells FEW (NONE-FEW) Urine Bacteria RARE (NEGATIVE) Urine HCG, Qual (NEGATIVE) Meds: Medications Discontinued Medications Generic Name Dose Route Start Last Admin Trade Name Freq PRN Reason Stop Dose Admin Sodium Chloride 1,000 mls @ 999 mls/hr 05/14/17 00:54 05/14/17 01:27 Normal Saline IV 05/14/17 01:54 999 mls/hr STAT ONE Administration Iopamidol 100 ml 05/14/17 02:37 05/14/17 02:39 Isovue-370 (76%) IVPUSH 05/14/17 02:38 100 ml ONETIME STA Administration Ketorolac Tromethamine 30 mg 05/14/17 00:54 05/14/17 01:32 Toradol IVPUSH 05/14/17 00:55 30 mg ONETIME ONE Administration Methylprednisolone Sodium Succinate 125 mg 05/14/17 03:03 Solu-Medrol IVPUSH 05/14/17 03:04 ONETIME ONE Ondansetron HCl 8 mg 05/14/17 00:54 05/14/17 01:30 Zofran IVPUSH 05/14/17 00:55 8 mg ONETIME ONE Administration Tamsulosin HCl 0.4 mg 05/14/17 03:03 Flomax PO 05/14/17 03:04 ONETIME ONE Departure - Departure Time of Disposition: 03:06 Disposition: Home, Self-Care 01 Condition: Good Clinical Impression: Ureteral stone - Discharge Information Referrals: Kiki Padilla MD [Primary Care Provider] - Forms: ED Department Discharge Additional Instructions: Medication as prescribed Return to ER if symptoms persist or worsen or fever chills sweats should they develop Strain urine and filter to catch stone return stone for pathology with primary care or urology Follow-up with primary care in 2 weeks sooner as needed [facility] - Primary Care [address] [place] [id number] [facility] - Urology [address] [place] [id number] The following information is given to patients seen in the emergency department who are being discharged to home. This information is to outline your options for follow-up care. We provide all patients seen in our emergency department with a follow-up referral. The need for follow-up, as well as the timing and circumstances, are variable depending upon the specifics of your emergency department visit. If you don't have a primary care physician on staff, we will provide you with a referral. We always advise you to contact your personal physician following an emergency department visit to inform them of the circumstance of the visit and for follow-up with them and/or the need for any referrals to a consulting specialist. The emergency department will also refer you to a specialist when appropriate. This referral assures that you have the opportunity for follow-up care with a specialist. All of these measure are taken in an effort to provide you with optimal care, which includes your follow-up. Under all circumstances we always encourage you to contact your private physician who remains a resource for coordinating your care. When calling for follow-up care, please make the office aware that this follow-up is from your recent emergency room visit. If for any reason you are refused follow-up, please contact the [facility] emergency department at and asked to speak to the emergency department charge nurse. - My Orders Last 24 Hours: My Active Orders 05/14/17 01:01 Abdomen Pelvis w wo Cont [CT] Stat 05/14/17 01:40 CULTURE URINE [RM] Stat - Assessment/Plan Last 24 Hours: My Active Orders 05/14/17 01:01 Abdomen Pelvis w wo Cont [CT] Stat 05/14/17 01:40 CULTURE URINE [RM] Stat
[2017-05-14 01:49] LABS: CHLORIDE,CL 108 mmol/L (98-110); SODIUM,NA 142 mmol/L (136-146)
[2017-05-14] MEDS ORDERED: Iopamidol 755 Mg/ML 100 ML Bottle IVPUSH STA (02:37)
[2017-05-14] MEDS ORDERED: methylPREDNISolone Sodium Succinate 125 MG/2 ML SDV IVPUSH ONE (03:03)
[2017-05-14] MEDS ORDERED: Tamsulosin 0.4 MG Cap.ER PO ONE (03:03)
--- NOTE | 2017-05-14 11:18 | CT ---
EXAM DATE: 05/14/17 PATIENT'S AGE: 42 Patient: ROWENA DARBY Facility: [place], [place] Site . Site : 1975 Study: CT Abdomen/Pelvis W/ and W/O Cont [id number]/[id number] 2:38:29 AM Ordering Physician: Behzad Pacheco Final Report: INDICATION: Left-sided abdominal pain radiating into back. Vomiting. TECHNIQUE: CT abdomen and pelvis acquired without and with 100 mL of Isovue 370 IV contrast. COMPARISON: None. FINDINGS: Lower chest: Lung bases are clear. No effusions. Liver: Unremarkable. Spleen: Unremarkable. Pancreas: Unremarkable. Gallbladder and bile ducts: Cholecystectomy. Kidneys: 5 mm stone in the proximal left ureter at the ureteropelvic junction causes minimal asymmetric dilatation of the left renal pelvis and mild periureteral stranding. Nonobstructing right renal stone is also present. Postcontrast imaging demonstrates a too small to characterize low-density lesion in the right kidney which likely represents a cyst. Adrenal glands: Unremarkable. GI tract: Colonic diverticulosis without evidence of acute diverticulitis. No obstruction or inflammatory changes elsewhere. No free air or free fluid. Vascular structures: Unremarkable. Lymph nodes: Unremarkable. Pelvic Organs: Intrauterine device appears appropriately positioned. Bilateral adnexal regions and bladder as imaged are unremarkable. Bones: No acute abnormality. IMPRESSION: 5 mm stone in the proximal left ureter causing minimal dilatation of the left renal pelvis and mild periureteral stranding. Nonobstructing right renal stone. Dictated by Stephen Davidson MD @ 05/14/2017 2:52:38 AM Dictated by: Stephen Davidson MD @ 05/14/2017 02:52:54 (Electronic Signature) Report Signed by Proxy. [facility]
== END 2017-05-14 03:32 | disposition home or self-care (01) ==
LOC: MW.ED 00:10
DX: N20.2 Calculus of kidney with calculus of ureter (principal); I10 Essential (primary) hypertension; Z88.0 Allergy status to penicillin; Z79.899 Other long term (current) drug therapy
CPT/HCPCS: 74178; 80053; 81001; 81025; 82150; 83690; 85025; 87086; 96361; 96374; 96375; 99284; A9270; J1885; J2405; J2930; J7040; Q9967; 99283

== ENCOUNTER 2017-05-18 12:41 | Emergency (ER) | payer BC ==
[2017-05-18] MEDS ORDERED: Ketorolac 30 MG/ML SDV IVPUSH ONE (13:25)
[2017-05-18] MEDS ORDERED: Sodium Chloride 0.9% 1,000 ML IV ONE (13:25)
[2017-05-18] MEDS ORDERED: Ondansetron 4 MG/2 ML SDV IVPUSH ONE (13:25)
--- NOTE | 2017-05-18 13:36 | EDM.PDOC ---
ED HPI GENERAL MEDICAL PROBLEM - General Chief Complaint: Abdominal Pain Stated Complaint: VOMTING/STOMACH PAIN/HEADACHE/CHILLS/KIDNEY STONE Time Seen by Provider: 05/18/17 13:23 Source of Information: Reports: Patient History Limitations: Reports: No Limitations - History of Present Illness INITIAL COMMENTS - FREE TEXT/NARRATIVE: HISTORY AND PHYSICAL: History of present illness: Patient is a 42-year-old female who presents to the emergency room with complaints of headache, body aches, nausea, vomiting, diarrhea 12 hours. She states she was seen in the emergency room on 05/14/2017 for left sided abdominal pain and flank pain and was diagnosed with a non-obstructing kidney stone. She was given Flomax and Ty Ty from the ER. She followed up with Dr. Chueng on 09/2017 and was put on Dilaudid for pain management, "the other stuff did not work". She states that the pain is now on her left lower quadrant but does not feel similar to the pain she was feeling previously with her kidney stone. She has not taken her Dilaudid or Zofran that she has at home. She does have a follow-up appointment on 05/21/[address] Cheung. Has had 2 large loose bowel movements, which she says were diarrhea. Has not received the [id number] influenza vaccine. Review of systems: As per history of present illness and below otherwise all systems reviewed and negative. Past medical history: As per history of present illness and as reviewed below otherwise noncontributory. Surgical history: As per history of present illness and as reviewed below otherwise noncontributory. Social history: No reported history of drug or alcohol abuse. Family history: As per history of present illness and as reviewed below otherwise noncontributory. Physical exam: HEENT: Atraumatic, normocephalic, pupils reactive, negative for conjunctival pallor or scleral icterus, mucous membranes moist, throat clear, neck supple, nontender, trachea midline. Lungs: Clear to auscultation, breath sounds equal bilaterally, chest nontender. Heart: S1S2, regular, negative for clicks, rubs, or JVD. Abdomen: Soft, obese, nondistended, generalized tenderness in all 4 quadrants. Negative for masses or hepatosplenomegaly. Negative for costovertebral tenderness. Pelvis: Stable nontender. Genitourinary: Deferred. Rectal: Deferred. Extremities: Atraumatic, negative for cords or calf pain. Neurovascular unremarkable. Neuro: Awake, alert, oriented. Cranial nerves II through XII unremarkable. Cerebellum unremarkable. Motor and sensory unremarkable throughout. Exam nonfocal. CT that was done on 05/14/2017 shows a 5 mm stone in the proximal left ureter, causing minimal dilation of the left renal pelvis. nonobstructing right kidney stone. Will repeat labs and Dr. Cheung. States she feels somewhat improved after the medications and fluids given here. CBC, CMP, UA are within normal limits. Did test positive for influenza a period she states that she would like the Tamiflu. First dose given now, second dose given for tonight as the pharmacy is closed. A prescription has been given to her for the following 4 days. She states she has 5 family members at home who are currently asymptomatic. Instructed her to have them follow up with her primary caregiver if they do become symptomatic. She voices understanding and is agreeable to plan of care. She'll follow up with Dr. Cheung as she already has scheduled for May 21. She states she has plenty of her Dilaudid and Zofran at home and declines the need for any additional pain management. Diagnostics: CBC, CMP, UA, urine Therapeutics: The fluid, Zofran, Toradol, Tamiflu Impression: Influenza A History of kidney stone, left Plan: 1. You tested positive for influenza A, and currently in the window to receive Tamiflu. The first 2 doses have been given here through the emergency room, as the pharmacies are currently closed. You need to take this medication twice a day 5 days total. Otherwise please provide supportive care with Tylenol and/or ibuprofen for pain and fever management. Drink plenty of fluids to prevent dehydration. 2. Continue to take your medications for your kidney stone. And keep your appointment with Dr. Cheung on May 21, 2017. 3. Please do not return to work until you are fever free for 24 hours, as Influenza is contagious. Infectious/Contamination measures as discussed. 4. Follow up with your primary caregiver in the next 1-2 days. Return to the ED as needed and as discussed. Definitive disposition and diagnosis as appropriate pending reevaluation and review of above. Duration: Hour(s): left abdominal Pain Score (Numeric/FACES): 8 - Related Data Allergies Allergy/AdvReac Type Severity Reaction Status Date / Time penicillin Allergy Anaphylactic Verified 05/18/17 12:58 Shock Home Meds: Home Meds Cyclobenzaprine [Flexeril] 10 mg PO TID PRN 02/11/15 [History] Diclofenac Sodium [Voltaren] 75 mg PO ASDIRECTED PRN 02/11/15 [History] LORazepam 1 mg PO DAILY PRN 02/11/15 [History] Levothyroxine [Synthroid] 50 mcg PO DAILY 02/11/15 [History] Losartan [Cozaar] 50 mg PO DAILY 02/11/15 [History] SUMAtriptan 100 mg PO ASDIRECTED PRN 02/11/15 [History] Citalopram [Celexa] 20 mg PO DAILY 06/02/16 [History] Metoprolol Tartrate 25 mg PO BID 06/02/16 [History] Rivaroxaban [Xarelto] 20 mg PO DAILY 06/02/16 [History] hydrALAZINE [Apresoline] 75 mg PO BEDTIME 07/15/16 [History] Ondansetron [Zofran ODT] 4 mg PO Q8H #6 tab.dis 11/27/16 [Rx] Potassium Bicarbonate/Cit Ac [Potassium 25 Meq Tablet Eff] 25 meq PO DAILY #10 tablet.eff 11/27/16 [Rx] HYDROmorphone [Dilaudid] 2 mg PO Q4H PRN 05/18/17 [History] Past Medical History HEENT History: Reports: None Cardiovascular History: Reports: Afib, Hypertension Respiratory History: Reports: None Gastrointestinal History: Reports: None Genitourinary History: Reports: None [employer] History: Reports: Musculoskeletal History: Reports: Back Pain, Chronic Other Musculoskeletal History: mild degenerative disc disease Neurological History: Reports: Headaches, Chronic Psychiatric History: Reports: Anxiety, Depression Endocrine/Metabolic History: Reports: None Hematologic History: Reports: None Immunologic History: Reports: None Oncologic (Cancer) History: Reports: None Dermatologic History: Reports: Other (See Below) Other Dermatologic History: rash - Infectious Disease History Infectious Disease History: Reports: Chicken Pox - Past Surgical History Head Surgeries/Procedures: Reports: None HEENT Surgical History: Reports: Other (See Below) Other HEENT Surgeries/Procedures: sinus surgery Cardiovascular Surgical History: Reports: None Respiratory Surgical History: Reports: None GI Surgical History: Reports: Cholecystectomy Female Surgical History: Reports: Section Social & Family History - Family History Family Medical History: Noncontributory Cardiac: Reports: Hypertension Endocrine/Metabolic: Reports: Other (See Below) Other Endocrine/Metabolic Family History: diabetes-unknown type Oncologic: Reports: Other (See Below) Other Oncologic Family History: sarcoma - Tobacco Use Smoking Status *Q: Never Smoker Second Hand Smoke Exposure: No - Caffeine Use Caffeine Use: Reports: Coffee, Energy Drinks, Soda, Tea - Recreational Drug Use Recreational Drug Use: No ED ROS GENERAL - Review of Systems Review Of Systems: ROS reveals no pertinent complaints other than HPI. ED EXAM, GI/ABD - Physical Exam Exam: See Below (See dictation) Course - Vital Signs Last Recorded V/S: Last Vital Signs Temp 97.6 F 05/18/17 12:59 Pulse 96 05/18/17 12:59 Resp 20 05/18/17 12:59 BP 180/104 H 05/18/17 12:59 Pulse Ox 96 05/18/17 12:59 - Orders/Labs/Meds Labs: Laboratory Tests 05/18/17 05/18/17 05/18/17 Range/Units 13:41 13:41 14:00 WBC 10.26 (4.0-11.0) K/uL RBC 5.13 (4.30-5.90) M/uL Hgb 15.2 (12.0-16.0) g/dL Hct 44.1 (36.0-46.0) % MCV 86.0 (80.0-98.0) fL MCH 29.6 (27.0-32.0) pg MCHC 34.5 (31.0-37.0) g/dL RDW Std Deviation 39.4 (28.0-62.0) fl RDW Coeff of Ava 13 (11.0-15.0) % Plt Count 247 (150-400) K/uL MPV 10.40 (7.40-12.00) fL Neut % (Auto) 79.2 (48.0-80.0) % Lymph % (Auto) 8.9 L (16.0-40.0) % Citrus % (Auto) 8.7 (0.0-15.0) % Eos % (Auto) 2.9 (0.0-7.0) % Baso % (Auto) 0.3 (0.0-1.5) % Neut # (Auto) 8.1 H (1.4-5.7) K/uL Lymph # (Auto) 0.9 (0.6-2.4) K/uL Citrus # (Auto) 0.9 H (0.0-0.8) K/uL Eos # (Auto) 0.3 (0.0-0.7) K/uL Baso # (Auto) 0.0 (0.0-0.1) K/uL Nucleated RBC % 0.0 /100WBC Nucleated RBCs # 0 K/uL Sodium 139 (136-146) mmol/L Potassium 3.9 (3.5-5.1) mmol/L Chloride 104 (98-110) mmol/L Carbon Dioxide 24 (21-31) mmol/L BUN 15 (6.0-23.0) mg/dL Creatinine 0.8 (0.6-1.5) mg/dL Est Cr Clr Drug Dosing 75.01 mL/min Estimated GFR (MDRD) > 60.0 ml/min Glucose 94 (60-110) mg/dL Calcium 9.6 (8.8-10.8) mg/dL Total Bilirubin 2.0 H (0.1-1.5) mg/dL AST 21 (5-40) IU/L ALT 26 (8-54) IU/L Alkaline Phosphatase 79 (40-150) Total Protein 7.8 (6.0-8.0) g/dL Albumin 4.4 (3.5-5.0) g/dL Globulin 3.4 (2.0-3.5) g/dL Albumin/Globulin Ratio 1.3 (1.3-2.8) Urine Color Urine Appearance Urine pH (5.0-8.0) Ur Specific [place] (1.001-1.035) Urine Protein (NEGATIVE) mg/dL Urine Glucose (UA) (NEGATIVE) mg/dL Urine Ketones (NEGATIVE) mg/dL Urine Occult Blood (NEGATIVE) Urine Nitrite (NEGATIVE) Urine Bilirubin (NEGATIVE) Urine Urobilinogen (<2.0) EU/dL Ur Leukocyte Esterase (NEGATIVE) Urine RBC (0-2/HPF) Urine WBC (0-5/HPF) Ur Epithelial Cells (NONE-FEW) Urine Bacteria (NEGATIVE) Urine Mucus (NONE-MOD) Urine HCG, Qual NEGATIVE (NEGATIVE) 05/18/17 Range/Units 14:04 WBC (4.0-11.0) K/uL RBC (4.30-5.90) M/uL Hgb (12.0-16.0) g/dL Hct (36.0-46.0) % MCV (80.0-98.0) fL MCH (27.0-32.0) pg MCHC (31.0-37.0) g/dL RDW Std Deviation (28.0-62.0) fl RDW Coeff of Ava (11.0-15.0) % Plt Count (150-400) K/uL MPV (7.40-12.00) fL Neut % (Auto) (48.0-80.0) % Lymph % (Auto) (16.0-40.0) % Citrus % (Auto) (0.0-15.0) % Eos % (Auto) (0.0-7.0) % Baso % (Auto) (0.0-1.5) % Neut # (Auto) (1.4-5.7) K/uL Lymph # (Auto) (0.6-2.4) K/uL Citrus # (Auto) (0.0-0.8) K/uL Eos # (Auto) (0.0-0.7) K/uL Baso # (Auto) (0.0-0.1) K/uL Nucleated RBC % /100WBC Nucleated RBCs # K/uL Sodium (136-146) mmol/L Potassium (3.5-5.1) mmol/L Chloride (98-110) mmol/L Carbon Dioxide (21-31) mmol/L BUN (6.0-23.0) mg/dL Creatinine (0.6-1.5) mg/dL Est Cr Clr Drug Dosing mL/min Estimated GFR (MDRD) ml/min Glucose (60-110) mg/dL Calcium (8.8-10.8) mg/dL Total Bilirubin (0.1-1.5) mg/dL AST (5-40) IU/L ALT (8-54) IU/L Alkaline Phosphatase (40-150) Total Protein (6.0-8.0) g/dL Albumin (3.5-5.0) g/dL Globulin (2.0-3.5) g/dL Albumin/Globulin Ratio (1.3-2.8) Urine Color YELLOW Urine Appearance CLEAR Urine pH 7.0 (5.0-8.0) Ur Specific [place] 1.020 (1.001-1.035) Urine Protein NEGATIVE (NEGATIVE) mg/dL Urine Glucose (UA) NEGATIVE (NEGATIVE) mg/dL Urine Ketones NEGATIVE (NEGATIVE) mg/dL Urine Occult Blood NEGATIVE (NEGATIVE) Urine Nitrite NEGATIVE (NEGATIVE) Urine Bilirubin NEGATIVE (NEGATIVE) Urine Urobilinogen 0.2 (<2.0) EU/dL Ur Leukocyte Esterase NEGATIVE (NEGATIVE) Urine RBC 0-2 (0-2/HPF) Urine WBC 0-2 (0-5/HPF) Ur Epithelial Cells FEW (NONE-FEW) Urine Bacteria FEW (NEGATIVE) Urine Mucus LIGHT (NONE-MOD) Urine HCG, Qual (NEGATIVE) Meds: Medications Discontinued Medications Generic Name Dose Route Start Last Admin Trade Name Merlene PRN Reason Stop Dose Admin Sodium Chloride 1,000 mls @ 999 mls/hr 05/18/17 13:25 05/18/17 13:45 Normal Saline IV 05/18/17 14:25 999 mls/hr STAT ONE Administration Ketorolac Tromethamine 30 mg 05/18/17 13:25 05/18/17 13:48 Toradol IVPUSH 05/18/17 13:26 30 mg ONETIME ONE Administration Ondansetron HCl 4 mg 05/18/17 13:25 05/18/17 13:49 Zofran IVPUSH 05/18/17 13:26 4 mg ONETIME ONE Administration Oseltamivir Phosphate 75 mg 05/18/17 14:48 Tamiflu PO 05/18/17 14:49 ONETIME ONE Oseltamivir Phosphate 75 mg 05/18/17 14:49 Tamiflu PO 05/18/17 14:50 ONETIME ONE Departure - Departure Time of Disposition: 14:58 Disposition: Home, Self-Care 01 Condition: Good Clinical Impression: Influenza A, History of kidney stones - Discharge Information Referrals: PCP,None [Primary Care Provider] - Forms: ED Department Discharge Additional Instructions: My general discharge The following information is given to patients seen in the emergency department who are being discharged to home. This information is to outline your options for follow-up care. We provide all patients seen in our emergency department with a follow-up referral. The need for follow-up, as well as the timing and circumstances, are variable depending upon the specifics of your emergency department visit. If you don't have a primary care physician on staff, we will provide you with a referral. We always advise you to contact your personal physician following an emergency department visit to inform them of the circumstance of the visit and for follow-up with them and/or the need for any referrals to a consulting specialist. The emergency department will also refer you to a specialist when appropriate. This referral assures that you have the opportunity for follow-up care with a specialist. All of these measure are taken in an effort to provide you with optimal care, which includes your follow-up. Under all circumstances we always encourage you to contact your private physician who remains a resource for coordinating your care. When calling for follow-up care, please make the office aware that this follow-up is from your recent emergency room visit. If for any reason you are refused follow-up, please contact the [facility] Emergency Department at and asked to speak to the emergency department charge nurse. [facility] [address] [place] [address] 1. You tested positive for influenza A, and currently in the window to receive Tamiflu. The first 2 doses have been given here through the emergency room, as the pharmacies are currently closed. You need to take this medication twice a day 5 days total. Otherwise please provide supportive care with Tylenol and/or ibuprofen for pain and fever management. Drink plenty of fluids to prevent dehydration. 2. Continue to take your medications for your kidney stone. And keep your appointment with Dr. Cheung on May 21, 2017. 3. Please do not return to work until you are fever free for 24 hours, as Influenza is contagious. Infectious/Contamination measures as discussed. 4. Follow up with your primary caregiver in the next 1-2 days. Return to the ED as needed and as discussed.
[2017-05-18 14:12] LABS: CHLORIDE,CL 104 mmol/L (98-110); SODIUM,NA 139 mmol/L (136-146)
[2017-05-18] MEDS ORDERED: Oseltamivir 75 MG Cap PO ONE ×2 (14:48→14:49)
[2017-05-18 15:47] VITALS: BP 147/92
== END 2017-05-18 15:19 | disposition home or self-care (01) ==
LOC: MW.ED 12:41
DX: J10.1 Influenza due to other identified influenza virus with other respiratory manifestations (principal); I10 Essential (primary) hypertension; Z88.0 Allergy status to penicillin; Z79.899 Other long term (current) drug therapy; Z87.442 Personal history of urinary calculi
CPT/HCPCS: 36415; 80053; 81001; 81025; 85025; 87804; 96361; 96374; 96375; 99284; A9270; J1885; J2405; J7040

== ENCOUNTER 2018-08-12 08:23 | Day surgery (SDC) | payer BC ==
[~2018-08-12 08:23] MED LIST: Lactated Ringers 1,000 ML IV SCH; Sodium Chloride 0.9% 10 ML SDV IV PRN; Sodium Chloride 0.9% 10 ML Syringe FLUSH PRN; Sodium Chloride 0.9% 2.5 ML Syringe FLUSH PRN
[2018-08-12] MEDS ORDERED: Midazolam 1 MG/ML 2 ML SDV ONE (09:08)
[2018-08-12] MEDS ORDERED: Propofol 200 MG/20 ML SDV ONE (09:08)
[2018-08-12] MEDS ORDERED: fentaNYL 100 MCG/2 ML SDV ONE (09:08)
[2018-08-12] MEDS ORDERED: Lidocaine 2% 5 ML SDV ONE (09:08)
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
[2018-08-12] MEDS ORDERED: Glycopyrrolate 0.2 MG/ML SDV ONE (09:56)
--- NOTE | 2018-08-12 10:24 | PCM.OPNOTE ---
- General Post-Op/Procedure Note Date of Surgery/Procedure: 08/12/18 Operative Procedure(s): Colonoscopy Findings: Change in bowel habits Pre Op Diagnosis: Rectal bleeding Post-Op Diagnosis: Grde 2 hemorrhoids, diverticulosis Anesthesia Technique: MAC Primary Surgeon: Teresa Khan Condition: Good Free Text/Narrative:: Intake & Output 08/11/18 08/12/18 08/12/18 22:59 06:59 14:59 Intake Total 500 Balance 500
--- NOTE | 2018-08-12 10:35 | PCM.POSTAN ---
POST ANESTHESIA ASSESSMENT - MENTAL STATUS Mental Status: Alert - RESPIRATORY Respiratory Status: Respiratory Rate WNL, Airway Patent, O2 Saturation Stable - CARDIOVASCULAR CV Status: Pulse Rate WNL, Blood Pressure Stable - GASTROINTESTINAL GI Status: No Symptoms - POST OP HYDRATION Hydration Status: Adequate & Stable
--- NOTE | 2018-08-12 11:02 | PCM48HPAN ---
Post Anesthesia Note - EVALUATION WITHIN 48HRS OF ANESTHETIC Vital Signs in Normal Range: Yes Patient Participated in Evaluation: Yes Respiratory Function Stable: Yes Airway Patent: Yes Cardiovascular Function Stable: Yes Hydration Status Stable: Yes Pain Control Satisfactory: Yes Nausea and Vomiting Control Satisfactory: Yes Mental Status Recovered: Yes Resp Rate: 12
[2018-08-12 12:04] VITALS: BP 103/44
--- NOTE | 2018-08-12 17:57 | OR ---
SURGEON: TERESA KHAN MD DATE OF PROCEDURE: 08/12/2018 PREOPERATIVE DIAGNOSES: Rectal bleeding, change in bowel habits. POSTOPERATIVE DIAGNOSES: 1. Grade 2 hemorrhoids. 2. Diverticulosis. PROCEDURE PERFORMED: Diagnostic colonoscopy. ENDOSCOPIST: Teresa Khan MD. ANESTHESIA: MAC. INSTRUMENT USED: Olympus colonoscope. EXTENT OF EXAM: To the cecum. PREPARATION: Good. LIMITATIONS: None. INDICATION FOR EXAMINATION: The patient is a 43-year-old female who has been having alternating bowel habits as well as rectal bleeding. We discussed the need for diagnostic colonoscopy. I explained the procedure, expected perioperative course, and risks including bleeding, infection, or damage to surrounding structures including perforation. The patient verbalized understanding and wishes to proceed. PROCEDURE IN DETAIL: The patient was brought into the endoscopy suite and placed in the left lateral decubitus position. A time-out was completed verifying the patient's name, age, date of , allergies, and procedure to be performed. Monitored anesthesia care was induced and continuous oxygen was provided via nasal cannula throughout the procedure. After adequate sedation was achieved, a digital rectal exam was performed. This exam was grossly normal. A well lubricated colonoscope was inserted in the rectum and advanced under direct visualization to the level of cecum. The cecum was identified by both visual and anatomic landmarks. A photograph was taken of cecal cap as well as with the scope in the retroflexed position of the cecum. The scope was then straightened out and fully withdrawn while examining the color, texture, anatomy, and integrity of the mucosa from the cecum to the anal canal. The patient was found to have diverticulosis scattered throughout the distal half of her colon. The scope was then brought into the rectum and retroflexed to allow visualization of the anal canal opening. A single enlarged hemorrhoidal column was noted consistent with grade 2 hemorrhoids. A photograph of this was taken. The scope was then straightened out and fully withdrawn. The cecum to anus time was 7 minutes. The patient tolerated the procedure well and was transferred to the PACU in stable condition. ENDOSCOPIC DIAGNOSES: 1. Grade 2 hemorrhoids. 2. Diverticulosis. RECOMMENDATIONS: We will follow up in clinic in 2 weeks to discuss the next steps in treatment. ECTOR / MARTHA /[id number]
== END 2018-08-12 11:04 | disposition home or self-care (01) ==
LOC: MW.SDS 08:23
PROVIDERS: ATTEND Surgery
DX: K62.5 Hemorrhage of anus and rectum (principal); R19.4 Change in bowel habit; K64.1 Second degree hemorrhoids; K57.30 Diverticulosis of large intestine without perforation or abscess without bleeding; I10 Essential (primary) hypertension; E66.9 Obesity, unspecified; Z68.29 Body mass index [BMI] 29.0-29.9, adult; I48.0 Paroxysmal atrial fibrillation; F41.9 Anxiety disorder, unspecified; F32.9 Major depressive disorder, single episode, unspecified; E03.9 Hypothyroidism, unspecified; Z87.891 Personal history of nicotine dependence; Z79.01 Long term (current) use of anticoagulants; Z79.899 Other long term (current) drug therapy; Z79.890 Hormone replacement therapy; Z88.0 Allergy status to penicillin; Z88.1 Allergy status to other antibiotic agents
CPT/HCPCS: 45378; 81025; J2001; J2250; J2704; J3010; J3490; J7120